=== PATIENT | female | born 1955 | race Caucasian/White ===

== ENCOUNTER 2020-06-13 23:51 | Inpatient (IN) | payer MEDICARE, BC ==
[~2020-06-13] VITALS: Ht 172.7 cm; Wt 50.8 kg
[2020-06-14] VITALS (7 sets, daily range): BP systolic 93–125; BP diastolic 47–71
--- NOTE | 2020-06-14 00:18 | NUR ---
GPS SLEEVE TURNER NOTE: PT ARRIVED ON THE UNIT 06/14/20 @ 0000, PT CAME FROM [facility] PRIOR TO THAT PT CAME FROM HOME. PT IS A 65 Y/O FEMALE PLACED ON A 5150 DUE TO DTS AND DTO, PER HOLD PT WAS SWINGING A KNIFE AT DAUGHTER AND MAKING SUICIDAL STATEMENTS. PT HAS MEDICAL HX OF HTN, HYPOTHYROIDISM, PSYCH HX OF ANXIETY AND DEPRESSION. UPON ASSESSMENT PT IS A/O X 3, PT IS COOPERATIVE, CALM, FLAT AFFECT. ABLE TO ANSWER QUESTIONS AND SIGNED PAPERWORK. PT DENIES SI/HI AT THIS TIME, DENIES AVH. PT DENIES PAIN, NO DISTRESS WAS NOTED. PT REFUSES BOTH FLU AND PNA VACCINE. PT ADVISED OF HOLD, PT RIGHTS HANDBOOK GIVEN TO THE PT, PT MADE AWARE OF THE UNIT. PT WILL BE UNDER THE CARE OF MEDICAL DR. NATION AND PSYCH CARE OF DR. THOMAS. ARMATURE VARNISHER DR. NATION WAS NOTIFIED OF THE PTS ADMISSION AND ASKED FOR THE MED RECON TO BE DONE WHEN ABLE TO. ALL NEEDS MET AT THIS TIME, WILL CONTINUE TO MONITOR Q15MIN FOR SAFETY AND BEHAVIOR.
[2020-06-14] MEDS ORDERED: MAG HYDROX/AL HYDROX/SIMETH 30 ML UDC PO PRN (00:30)
[2020-06-14] MEDS ORDERED: BLOOD SUGAR DIAGNOSTIC 1 EACH STRIP IN ONE (00:30)
[2020-06-14] MEDS ORDERED: ACETAMINOPHEN 325 MG TABLET PO PRN ×2 (00:30→09:00)
[2020-06-14] MEDS ORDERED: MAGNESIUM HYDROXIDE 30 ML UDC PO PRN (00:30)
[2020-06-14] MEDS ORDERED: LORAZEPAM 1 MG TABLET PO PRN (01:00)
[2020-06-14] MEDS ORDERED: levothyroxine PO (01:37)
[2020-06-14] MEDS ORDERED: folic acid PO (01:37)
[2020-06-14] MEDS ORDERED: oxybutynin PO (01:37)
[2020-06-14] MEDS ORDERED: BUSP5TAB3 PO (01:37)
[2020-06-14] MEDS ORDERED: MELA5TAB PO (01:37)
[2020-06-14] MEDS ORDERED: DOCUSATE SENNA PO (01:46)
[2020-06-14] MEDS ORDERED: HYDR-4354 PO (01:46)
[2020-06-14] MEDS ORDERED: tramadol PO (01:46)
[2020-06-14] MEDS ORDERED: lovenox SUBCUT (01:46)
[2020-06-14] MEDS ORDERED: MAGN400T8 PO (01:46)
[2020-06-14] MEDS ORDERED: LISI2.5T2 PO ×2 (04:03→08:19)
[2020-06-14] MEDS ORDERED: NITR0.4T48 SL (04:03)
[2020-06-14] MEDS ORDERED: METOPROLOL TARTRATE (04:03)
--- NOTE | 2020-06-14 04:21 | NUR ---
GPS RN NOTE: CONTACTED DR. NATION FOR MED RECON AND STATED "WILL DO" Addendum: 06/14/20 at 0433 by SAMMY PINTO RN at 0148
[2020-06-14] MEDS ORDERED: LYRICA (04:29)
[2020-06-14] MEDS ORDERED: PREG25CA PO (08:19)
[2020-06-14] MEDS ORDERED: IBUP-1953 PO (08:19)
[2020-06-14] MEDS ORDERED: OXYB10TA30 PO (08:19)
[2020-06-14] MEDS ORDERED: ONDA4TAB5 PO (08:19)
[2020-06-14] MEDS ORDERED: FOLI0.4T2 PO (08:19)
[2020-06-14] MEDS ORDERED: MONT10TA22 PO (08:19)
[2020-06-14] MEDS ORDERED: LEVO88TA5 PO (08:19)
[2020-06-14] MEDS ORDERED: METO25TA20 PO (08:19)
--- NOTE | 2020-06-14 08:50 | NUR ---
GPS/RN VERIFIED THE ALLERGY WITH PT. PER PT SHE DOES NOT HAVE ALLERGY TO NORCO OR TYLENOL.
[2020-06-14] MEDS ORDERED: NITROGLYCERIN 0.4 MG/TAB BOTTLE SL PRN (13:30)
[2020-06-14] MEDS ORDERED: LISINOPRIL (5MG) 5 MG TABLET PO PRN (13:30)
[2020-06-14] MEDS ORDERED: IBUPROFEN 400 MG TABLET PO PRN (13:30)
[2020-06-14] MEDS ORDERED: ONDANSETRON 4 MG TAB.RAPDIS PO PRN (13:30)
[2020-06-14 14:33] LABS: BASOPHILS # (AUTO) 0.1 /CMM (0.0-0.2); BASOPHILS % (AUTO) 1.3 % (0.0-2.0); EOSINOPHILS % (AUTO) 1.5 % (0.0-6.0); HEMATOCRIT 39 % (33-45); HEMOGLOBIN 12.8 g/dL (11.5-14.8); LYMPHOCYTES # (AUTO) 1.8 /CMM (0.8-4.8); LYMPHOCYTES % (AUTO) 27.6 % (20.0-44.0); MEAN CORPUSCULAR HGB CONC 33 g/dl (31.0-36.0); MEAN CORPUSCULAR VOLUME 83 fL (82-100); MONOCYTES # (AUTO) 0.5 /CMM (0.1-1.30); MONOCYTES % (AUTO) 7.5 % (2.0-12.0); NEUTROPHILS # (AUTO) 4.1 /CMM (1.8-8.9); NEUTROPHILS % (AUTO) 62.1 % (43.0-81.0); PLATELET COUNT (AUTO) 293 /CMM (150-450); RED BLOOD CELL COUNT(AUTO) 4.69 MIL/uL (4.0-5.2); WHITE BLOOD COUNT (AUTO) 6.7 K/uL (4.3-11.0)
[2020-06-14 14:45] LABS: ALBUMIN 3.1 g/dL (3.4-5.0); BILIRUBIN,TOTAL 0.4 mg/dL (0.2-1.0); CALCIUM, SERUM 8.7 mg/dL (8.5-10.1); CREATININE 0.8 mg/dL (0.6-1.3); MAGNESIUM 1.8 mg/dL (1.8-2.4); PHOSPHORUS 3.3 mg/dL (2.5-4.9); POTASSIUM 3.7 mmol/L (3.5-5.1); TOTAL PROTEIN, SERUM 7.2 g/dL (6.4-8.2)
[2020-06-14 14:56] LABS: THYROID STIMULATING HORMONE 0.061 uIU/mL (0.358-3.74)
[2020-06-14] MEDS: PREGABALIN 25 MG CAPSULE PO SCH (16:24)
[2020-06-14] MEDS: METOPROLOL TARTRATE 25 MG TABLET PO SCH (16:25)
[2020-06-14] MEDS: ENOXAPARIN SODIUM 40 MG/0.4 ML DISP.SYRIN SQ SCH (16:27)
[2020-06-14] MEDS ORDERED: busPIRone 5 MG TABLET PO SCH ×2 (17:00)
[2020-06-14] MEDS ORDERED: Medication Not On Formulary EA (Melatonin 5 MG) PO SCH (18:00)
--- NOTE | 2020-06-14 23:00 | NUR ---
GPS RN NOTE PATIENT SEEN BY DR. THOMAS WITH NEW ORDERS TO START DEPAKOTE 250 MG TID & RISPERDAL 0.5 MG BID. NOTED & CARRIED OUT. FAXED TO PHARMACY.
[2020-06-14] MEDS: DIVALPROEX SODIUM 250 MG TABLET.DR PO SCH (23:50)
[2020-06-14] MEDS: risperiDONE 1 MG TABLET PO SCH (23:51)
[2020-06-15 08:00] VITALS: BP 90/63
[2020-06-15 08:30] LABS: ALBUMIN 2.9 g/dL (3.4-5.0); BILIRUBIN,TOTAL 0.5 mg/dL (0.2-1.0); CREATININE 0.6 mg/dL (0.6-1.3); POTASSIUM 3.9 mmol/L (3.5-5.1); TOTAL PROTEIN, SERUM 6.9 g/dL (6.4-8.2)
[2020-06-15 08:32] LABS: CHOLESTEROL 133 mg/dL (<200); HDL CHOLESTEROL 61 mg/dL (40-60); LDL 59 mg/dL (0-99); TRIGLYCERIDES 65 mg/dL (30-150)
[2020-06-15] MEDS: OXYBUTYNIN CHLORIDE 5 MG TABLET PO SCH (08:37)
[2020-06-15] MEDS: PREGABALIN 25 MG CAPSULE PO SCH ×2 (08:39→17:51)
[2020-06-15] MEDS: MONTELUKAST SODIUM (10MG) 10 MG TABLET PO SCH (08:39)
[2020-06-15] MEDS: LEVOTHYROXINE SODIUM 88 MCG TABLET PO SCH (08:41)
[2020-06-15] MEDS: DIVALPROEX SODIUM 250 MG TABLET.DR PO SCH ×3 (08:41→17:51)
[2020-06-15] MEDS: FOLIC ACID 1 MG TABLET PO SCH (08:41)
[2020-06-15] MEDS: risperiDONE 1 MG TABLET PO SCH ×2 (08:41→17:52)
[2020-06-15] MEDS: METOPROLOL TARTRATE 25 MG TABLET PO SCH ×2 (09:00→17:54)
--- NOTE | 2020-06-15 10:38 | NUR ---
Family Contact: SW called the pts daughter, Dasia ([phone]), and informed her that the pt appears to be improving with the new medication regimen. SW stated that the pt appears to be speaking in clear and complete sentences and has an overall good awareness of the situation surrounding her admission. Pts daughter stated that the pt had tangential speech and thought processes upon admission. Pts daughter stated that the pt can return to her home at the time of discharge and that she will come and pick her up.
--- NOTE | 2020-06-15 11:53 | NUR ---
Initial Discharge Plan: Pt currently resides at her [place] home [place] at [address], [place] [address]; ([phone]). Per pt, she would like to be discharged back to her home. Pts daughter, Dasia ([phone]), stated that she will pick the pt up. SW will work with the pt and the MD regarding appropriate discharge planning. SW will form a safe and proper discharge.
[2020-06-15 16:00] VITALS: BP 111/66
[2020-06-15] MEDS: ENOXAPARIN SODIUM 40 MG/0.4 ML DISP.SYRIN SQ SCH (16:10)
[2020-06-15 20:26] VITALS: BP 101/62
[2020-06-15] MEDS: TEMAZEPAM 7.5 MG CAPSULE PO PRN (21:57)
--- NOTE | 2020-06-15 21:58 | NUR ---
GPS RN NOTE: INSOMNIA PT REQUESTED SLEEPING PILL, VSS, ADMIN RESTORIL 15MG PRN ORDERED @ 2157, WILL REASSESS AND CONTINUE TO MONITOR Q15MIN FRO SAFETY AND BEHAVIOR. PT MADE AWARE OF FALL RISK, BED ALARM ON, BED IN LOCKED AND LOWEST POSITION, WALKER ACCESSIBLE TO PT.
--- NOTE | 2020-06-15 22:08 | NUR ---
GPS RN NOTE: SPOKE WITH THE PTS DAUGHTER @ 2200, THE PTS DAUGHTER WAS TEARFUL AND STATED SHE RECEIVED A PHONE CALL FROM THE PT STATING THE PT SAID SHE WAS GOING TO HIRE AN CORPORATE STAFF ACCOUNTANT TO [place]GÉLICA HER AND ONCE SHE IS OUT OF HERE SHE IS NOT GOING TO TAKE THE MEDICATION AND DO WHAT SHE WANTS, DAUGHTER ALSO ASKED TO SPEAK WITH THE PSYCHIATRIST WHEN POSSIBLE, WROTE DOWN A MESSAGE FOR DR. THOMAS, AT THIS TIME PT IS STABLE, RESTING IN BED, WILL PASS IT ON AND CONTINUE TO ASSESS Q15MIN FOR SAFETY AND BEHAVIOR.
[2020-06-16 03:05] LABS: BILIRUBIN,URINE NEGATIVE (NEGATIVE); BLOOD, URINE NEGATIVE Ery/uL (NEGATIVE); COLOR,URINE YELLOW (YELLOW); LEUKOCYTE ESTERASE ,URINE TRACE (NEGATIVE); NITRITE, URINE NEGATIVE (NEGATIVE); PROTEIN,URINE NEGATIVE (NEGATIVE); UGLUCOSE NEGATIVE (NEGATIVE); UROBILINOGEN,URINE 0.2 EU/dL (0.2)
[2020-06-16 03:28] LABS: BACTERIA,URINE None seen /HPF (None Seen); RBC,URINE 0-2 /HPF (0-2); SQUAMOUS EPITHELIAL CELL,UR Moderate /HPF (None Seen); URINE AMORPHOUS URATE Few /HPF (None Seen); YEAST,URINE None Seen /HPF (None Seen)
--- NOTE | 2020-06-16 05:32 | NUR ---
GPS RN NOTE: PAGED RN ACUTE DIALYSIS DR. NATION REGARDING PTS URINALYSIS, PT IS NOT COMPLAINING OF ANY DISCOMFORT OR PAIN WHEN URINATING, WILL WAIT FOR REPLY BACK AND CONTINUE TO MONITOR PT Q15MIN FOR SAFETY AND BEHAVIOR.
--- NOTE | 2020-06-16 05:55 | NUR ---
GPS RN NOTE: RECEIVED AN ORDER FROM DR. NATION FOR KEFLEX 500 PO BID FOR 7 DAYS, WILL PUT IN THE ORDERS, NOTIFY PT AND UPCOMING SHIFT.
[2020-06-16] MEDS: LEVOTHYROXINE SODIUM 88 MCG TABLET PO SCH (06:43)
[2020-06-16 08:00] VITALS: BP 107/68
[2020-06-16] MEDS: OXYBUTYNIN CHLORIDE 5 MG TABLET PO SCH (08:43)
[2020-06-16] MEDS: risperiDONE 1 MG TABLET PO SCH ×2 (08:43→17:08)
[2020-06-16] MEDS: METOPROLOL TARTRATE 25 MG TABLET PO SCH ×2 (08:44→17:00)
[2020-06-16] MEDS: MONTELUKAST SODIUM (10MG) 10 MG TABLET PO SCH (08:44)
[2020-06-16] MEDS: DIVALPROEX SODIUM 250 MG TABLET.DR PO SCH ×3 (08:44→17:08)
[2020-06-16] MEDS: FOLIC ACID 1 MG TABLET PO SCH (08:44)
[2020-06-16] MEDS: CEPHALEXIN MONOHYDRATE 250 MG CAPSULE PO SCH ×2 (08:44→17:08)
[2020-06-16] MEDS: PREGABALIN 25 MG CAPSULE PO SCH ×2 (08:44→17:08)
--- NOTE | 2020-06-16 09:00 | NUR ---
RN NOTE=- PT ALERT ORIENTED TO PERSON PLACE DENIES SI HI AH VH THIS MORNING, INTERACTIVE AND MED COMPLIANT. NO BEHAVIORAL ISSUES .
--- NOTE | 2020-06-16 09:33 | NUR ---
WOUND CARE CONSULT: SPOKE WITH RN WHO STATES NO NEED FOR WOUND CONSULT. CURRENT LUZ MARIA SCORE IS 18. WILL SEE PRN.
[2020-06-16] MEDS: ENOXAPARIN SODIUM 40 MG/0.4 ML DISP.SYRIN SQ SCH (15:52)
[2020-06-16 16:00] VITALS: BP 108/72
[2020-06-16 20:37] VITALS: BP 101/62
[2020-06-16] MEDS: TEMAZEPAM 7.5 MG CAPSULE PO PRN (22:58)
--- NOTE | 2020-06-16 22:59 | NUR ---
GPS RN NOTE: INSOMNIA PT REQUESTED SLEEPING PILL, VSS, ADMIN RESTORIL 15MG PRN ORDERED @ 2258, WILL REASSESS AND CONTINUE TO MONITOR Q15MIN FRO SAFETY AND BEHAVIOR. PT MADE AWARE OF FALL RISK, BED ALARM ON, BED IN LOCKED AND LOWEST POSITION, WALKER ACCESSIBLE TO PT.
[2020-06-17] MEDS: LEVOTHYROXINE SODIUM 88 MCG TABLET PO SCH (06:32)
[2020-06-17 08:00] VITALS: BP 120/71
[2020-06-17] MEDS: DIVALPROEX SODIUM 250 MG TABLET.DR PO SCH ×3 (08:47→16:27)
[2020-06-17] MEDS: CEPHALEXIN MONOHYDRATE 250 MG CAPSULE PO SCH ×2 (08:47→16:28)
[2020-06-17] MEDS: MONTELUKAST SODIUM (10MG) 10 MG TABLET PO SCH (08:47)
[2020-06-17] MEDS: PREGABALIN 25 MG CAPSULE PO SCH ×2 (08:48→16:27)
[2020-06-17] MEDS: METOPROLOL TARTRATE 25 MG TABLET PO SCH ×2 (08:48→16:28)
[2020-06-17] MEDS: OXYBUTYNIN CHLORIDE 5 MG TABLET PO SCH (08:48)
[2020-06-17] MEDS: FOLIC ACID 1 MG TABLET PO SCH (08:48)
[2020-06-17] MEDS: risperiDONE 1 MG TABLET PO SCH ×2 (08:48→16:29)
--- NOTE | 2020-06-17 09:00 | NUR ---
RN NOTE- VISIBLE ON UNIT, MORE INTERACTIVE, PT ALERT ORIENTED TO PERSON PLACE DENIES SI HI AH VH THIS MORNING, MED COMPLIANT. NO BEHAVIORAL ISSUES .
[2020-06-17 16:00] VITALS: BP 123/75
[2020-06-17] MEDS: ENOXAPARIN SODIUM 40 MG/0.4 ML DISP.SYRIN SQ SCH (16:04)
[2020-06-17 21:08] VITALS: BP 157/76
[2020-06-17] MEDS: TEMAZEPAM 7.5 MG CAPSULE PO PRN (22:44)
--- NOTE | 2020-06-17 22:45 | NUR ---
GPS RN NOTE: INSOMNIA PT C/O OF INSOMNIA REQUESTED SLEEPING PILL, ADMIN RESTORIL 15MG @ 2244, VSS, BED IN LOCKED AND LOWEST POSITION, PT NOTIFIED ABOUT FALL RISK DUE TO THIS MEDICATION, BED ALARM ON AND WALKER ACCESSIBLE TO PT. WILL CONTINUE TO MONITOR Q15MIN FOR SAFETY AND BEHAVIOR.
[2020-06-18] MEDS: LEVOTHYROXINE SODIUM 88 MCG TABLET PO SCH (06:32)
[2020-06-18 08:00] VITALS: BP 128/75
[2020-06-18] MEDS: CEPHALEXIN MONOHYDRATE 250 MG CAPSULE PO SCH ×2 (08:04→16:03)
[2020-06-18] MEDS: FOLIC ACID 1 MG TABLET PO SCH (08:04)
[2020-06-18] MEDS: MONTELUKAST SODIUM (10MG) 10 MG TABLET PO SCH (08:04)
[2020-06-18] MEDS: OXYBUTYNIN CHLORIDE 5 MG TABLET PO SCH (08:05)
[2020-06-18] MEDS: PREGABALIN 25 MG CAPSULE PO SCH ×2 (08:05→16:03)
[2020-06-18] MEDS: DIVALPROEX SODIUM 250 MG TABLET.DR PO SCH ×3 (08:05→16:21)
[2020-06-18] MEDS: risperiDONE 1 MG TABLET PO SCH ×2 (08:05→16:03)
[2020-06-18] MEDS: METOPROLOL TARTRATE 25 MG TABLET PO SCH ×2 (08:06→16:04)
--- NOTE | 2020-06-18 12:29 | NUR ---
Family Contact: SW called the pts daughter, Dasia ([phone]), and left a voicemail stating that she would like to discuss the pts current treatment.
--- NOTE | 2020-06-18 12:42 | NUR ---
Family Contact: Pts daughter, Dasia ([phone]), called the SW back and the SW provided her with an update of the pts progress and it was discussed that she would be discharged sometime next week. SW stated that she would update the pts daughter and work on attaining a psychiatrist for follow up.
[2020-06-18] MEDS: ENOXAPARIN SODIUM 40 MG/0.4 ML DISP.SYRIN SQ SCH (15:35)
[2020-06-18 16:00] VITALS: BP 100/70
[2020-06-18 20:37] VITALS: BP 113/76
[2020-06-18] MEDS: TEMAZEPAM 7.5 MG CAPSULE PO PRN (23:02)
--- NOTE | 2020-06-18 23:02 | NUR ---
NURSE NOTES: PATIENT COMPLAINED OF HAVING INSOMNIA. REQUESTED FOR HER SLEEPING MEDICATION. RESTORIL 15 MG GIVEN ORALLY. WILL MONITOR PATIENT'S SLEEPING PATTERN.
[2020-06-19 09:14] VITALS: BP 114/76
[2020-06-19] MEDS: CEPHALEXIN MONOHYDRATE 250 MG CAPSULE PO SCH ×2 (09:30→16:25)
[2020-06-19] MEDS: FOLIC ACID 1 MG TABLET PO SCH (09:30)
[2020-06-19] MEDS: DIVALPROEX SODIUM 250 MG TABLET.DR PO SCH ×3 (09:31→16:24)
[2020-06-19] MEDS: MONTELUKAST SODIUM (10MG) 10 MG TABLET PO SCH (09:31)
[2020-06-19] MEDS: PREGABALIN 25 MG CAPSULE PO SCH ×2 (09:31→16:25)
[2020-06-19] MEDS: OXYBUTYNIN CHLORIDE 5 MG TABLET PO SCH (09:31)
[2020-06-19] MEDS: LEVOTHYROXINE SODIUM 88 MCG TABLET PO SCH (09:31)
[2020-06-19] MEDS: risperiDONE 1 MG TABLET PO SCH ×2 (09:31→16:25)
[2020-06-19] MEDS: METOPROLOL TARTRATE 25 MG TABLET PO SCH ×2 (09:32→16:26)
[2020-06-19 16:17] VITALS: BP 115/73
--- NOTE | 2020-06-19 16:19 | NUR ---
Family Contact: SW called the pts daughter, Dasia ([phone]), and informed her that the pt has an appointment with her boiler house mechanic on 07/01/20 at 3pm and that she will refer the pt to a psychiatrist once she evaluates her.
[2020-06-19] MEDS: ENOXAPARIN SODIUM 40 MG/0.4 ML DISP.SYRIN SQ SCH (16:28)
[2020-06-19 19:50] VITALS: BP 100/61
[2020-06-19 20:08] VITALS: BP 100/61
[2020-06-19 22:50] VITALS: BP 109/65
[2020-06-19] MEDS: TEMAZEPAM 7.5 MG CAPSULE PO PRN (22:52)
--- NOTE | 2020-06-19 22:52 | NUR ---
GPS RN NOTE: INSOMNIA PATIENT VERBALIZED THAT SHE IS UNABLE TO SLEEP, REQUESTED TO GET SLEEPING MEDICINE. VSS 109/65, 77, 18, 97.5, 97% AT RA, PRN RESTORIL 15 MG PO GIVEN. WILL CONTINUE TO MONITOR.
[2020-06-20 08:00] VITALS: BP 120/77
[2020-06-20] MEDS: LEVOTHYROXINE SODIUM 88 MCG TABLET PO SCH (08:57)
[2020-06-20] MEDS: DIVALPROEX SODIUM 250 MG TABLET.DR PO SCH ×3 (09:11→17:34)
[2020-06-20] MEDS: CEPHALEXIN MONOHYDRATE 250 MG CAPSULE PO SCH ×2 (09:11→17:34)
[2020-06-20] MEDS: OXYBUTYNIN CHLORIDE 5 MG TABLET PO SCH (09:12)
[2020-06-20] MEDS: FOLIC ACID 1 MG TABLET PO SCH (09:12)
[2020-06-20] MEDS: risperiDONE 1 MG TABLET PO SCH ×2 (09:12→17:34)
[2020-06-20] MEDS: MONTELUKAST SODIUM (10MG) 10 MG TABLET PO SCH (09:12)
[2020-06-20] MEDS: PREGABALIN 25 MG CAPSULE PO SCH ×2 (09:12→17:33)
[2020-06-20] MEDS: METOPROLOL TARTRATE 25 MG TABLET PO SCH ×2 (09:14→17:34)
[2020-06-20] MEDS: ENOXAPARIN SODIUM 40 MG/0.4 ML DISP.SYRIN SQ SCH (15:54)
[2020-06-20 16:20] VITALS: BP 127/90
[2020-06-20 19:55] VITALS: BP 108/66
[2020-06-20 21:05] VITALS: BP 108/66
[2020-06-20] MEDS: TEMAZEPAM 7.5 MG CAPSULE PO PRN (22:48)
--- NOTE | 2020-06-20 22:48 | NUR ---
GPS RN NOTE: INSOMNIA PATIENT VERBALIZED THAT SHE IS UNABLE TO SLEEP, REQUESTED TO GET SLEEPING MEDICINE. VSS. PRN RESTORIL 15 MG PO GIVEN. WILL CONTINUE TO MONITOR.
[2020-06-21 08:00] VITALS: BP 133/83
[2020-06-21] MEDS: CEPHALEXIN MONOHYDRATE 250 MG CAPSULE PO SCH ×2 (09:08→16:45)
[2020-06-21] MEDS: risperiDONE 1 MG TABLET PO SCH ×2 (09:09→16:45)
[2020-06-21] MEDS: PREGABALIN 25 MG CAPSULE PO SCH ×2 (09:09→16:45)
[2020-06-21] MEDS: DIVALPROEX SODIUM 250 MG TABLET.DR PO SCH ×3 (09:09→16:44)
[2020-06-21] MEDS: OXYBUTYNIN CHLORIDE 5 MG TABLET PO SCH (09:09)
[2020-06-21] MEDS: FOLIC ACID 1 MG TABLET PO SCH (09:10)
[2020-06-21] MEDS: MONTELUKAST SODIUM (10MG) 10 MG TABLET PO SCH (09:13)
[2020-06-21] MEDS: METOPROLOL TARTRATE 25 MG TABLET PO SCH ×2 (09:14→16:46)
[2020-06-21] MEDS: ENOXAPARIN SODIUM 40 MG/0.4 ML DISP.SYRIN SQ SCH (15:50)
[2020-06-21 16:00] VITALS: BP 119/71
[2020-06-21 20:00] VITALS: BP 111/59
[2020-06-21] MEDS: TEMAZEPAM 7.5 MG CAPSULE PO PRN (22:00)
--- NOTE | 2020-06-21 22:00 | NUR ---
GPS-RN NOTE: INSOMNIA PATIENT C/O INABILITY TO SLEEP. ADMINISTERED RESTORIL 15MG PO ORDERED PER PATIENT'S REQUEST. WILL CONTINUE TO MONITOR PATIENT'S SAFETY.
[2020-06-22] MEDS: LEVOTHYROXINE SODIUM 88 MCG TABLET PO SCH (07:30)
[2020-06-22 08:00] VITALS: BP 121/75
[2020-06-22] MEDS: CEPHALEXIN MONOHYDRATE 250 MG CAPSULE PO SCH ×2 (09:02→17:53)
[2020-06-22] MEDS: DIVALPROEX SODIUM 250 MG TABLET.DR PO SCH ×3 (09:02→17:53)
[2020-06-22] MEDS: PREGABALIN 25 MG CAPSULE PO SCH ×2 (09:02→17:53)
[2020-06-22] MEDS: OXYBUTYNIN CHLORIDE 5 MG TABLET PO SCH (09:03)
[2020-06-22] MEDS: MONTELUKAST SODIUM (10MG) 10 MG TABLET PO SCH (09:04)
[2020-06-22] MEDS: risperiDONE 1 MG TABLET PO SCH ×2 (09:04→17:53)
[2020-06-22] MEDS: FOLIC ACID 1 MG TABLET PO SCH (09:06)
[2020-06-22] MEDS: METOPROLOL TARTRATE 25 MG TABLET PO SCH ×2 (09:06→17:54)
--- NOTE | 2020-06-22 13:14 | NUR ---
Family Contact: Patient's daughter Dasia ([phone]) called this greeting card writer to discuss when pt's discharge day is. This greeting card writer called Dasia and left a detailed voicemail.
[2020-06-22 16:00] VITALS: BP 121/79
[2020-06-22] MEDS: ENOXAPARIN SODIUM 40 MG/0.4 ML DISP.SYRIN SQ SCH (16:07)
[2020-06-22 20:37] VITALS: BP 103/56
[2020-06-23] MEDS: TEMAZEPAM 7.5 MG CAPSULE PO PRN ×2 (00:19→22:21)
--- NOTE | 2020-06-23 00:20 | NUR ---
Patient c/o difficulty falling asleep,requested and given Restoril 15 mg PO .
[2020-06-23] MEDS: LEVOTHYROXINE SODIUM 88 MCG TABLET PO SCH (07:30)
[2020-06-23 08:00] VITALS: BP 129/86
[2020-06-23] MEDS: OXYBUTYNIN CHLORIDE 5 MG TABLET PO SCH (09:00)
[2020-06-23] MEDS: CEPHALEXIN MONOHYDRATE 250 MG CAPSULE PO SCH (09:03)
[2020-06-23] MEDS: DIVALPROEX SODIUM 250 MG TABLET.DR PO SCH ×3 (09:03→17:35)
[2020-06-23] MEDS: FOLIC ACID 1 MG TABLET PO SCH (09:03)
[2020-06-23] MEDS: METOPROLOL TARTRATE 25 MG TABLET PO SCH ×2 (09:03→17:35)
[2020-06-23] MEDS: MONTELUKAST SODIUM (10MG) 10 MG TABLET PO SCH (09:12)
[2020-06-23] MEDS: risperiDONE 1 MG TABLET PO SCH ×2 (09:12→17:36)
[2020-06-23] MEDS: PREGABALIN 25 MG CAPSULE PO SCH ×2 (09:12→17:35)
[2020-06-23] MEDS: ENOXAPARIN SODIUM 40 MG/0.4 ML DISP.SYRIN SQ SCH (15:30)
[2020-06-23 16:00] VITALS: BP 120/72
--- NOTE | 2020-06-23 16:06 | NUR ---
SW Coordination of Care: TAWANDA Chen located at [address] [place] [address] A, [place] [address]; ([phone]); faxed: . This SW faxed patient's clinicals.
[2020-06-23 21:24] VITALS: BP 97/53
[2020-06-23 22:17] VITALS: BP 115/64
--- NOTE | 2020-06-23 22:21 | NUR ---
PS-RN NOTES: INSOMNIA PATIENT C/O INABILITY TO SLEEP. ADMINISTERED RESTORIL 15MG PO ORDERED. WILL CONTINUE TO MONITOR FOR PT'S SAFETY.
[2020-06-24 08:00] VITALS: BP 114/79
--- NOTE | 2020-06-24 08:19 | NUR ---
Family Contact: This SW contacted patient's daughter Dasia ([phone]) twice and left a voicemail in regards to pt's discharge on 06/25 and to set pick remover time.
[2020-06-24] MEDS: DIVALPROEX SODIUM 250 MG TABLET.DR PO SCH ×3 (08:21→16:32)
[2020-06-24] MEDS: OXYBUTYNIN CHLORIDE 5 MG TABLET PO SCH (08:21)
[2020-06-24] MEDS: FOLIC ACID 1 MG TABLET PO SCH (08:21)
[2020-06-24] MEDS: MONTELUKAST SODIUM (10MG) 10 MG TABLET PO SCH (08:21)
[2020-06-24] MEDS: risperiDONE 1 MG TABLET PO SCH ×2 (08:21→16:32)
[2020-06-24] MEDS: PREGABALIN 25 MG CAPSULE PO SCH ×2 (08:21→16:32)
[2020-06-24] MEDS: LEVOTHYROXINE SODIUM 88 MCG TABLET PO SCH (08:22)
[2020-06-24] MEDS: METOPROLOL TARTRATE 25 MG TABLET PO SCH ×2 (08:22→16:32)
--- NOTE | 2020-06-24 12:31 | NUR ---
Family Contact: This press writer received a phone call from daughter Dasia ([phone]) who stated her [employer] ([phone]) will greens picker pt at 11AM on 06/25/20.
--- NOTE | 2020-06-24 13:11 | NUR ---
[facility] Individual Therapy: curtain worker met with patient for brief counseling and assessed for patient's labile mood. Patient appeared calm and was cooperative. Patient was able to share some family history. She stated she has a strong relationship with her daughter and is appreciative of her. This residential mortgage underwriter actively listened.
[2020-06-24 16:00] VITALS: BP 128/84
[2020-06-24] MEDS: ENOXAPARIN SODIUM 40 MG/0.4 ML DISP.SYRIN SQ SCH (16:25)
--- NOTE | 2020-06-24 18:31 | NUR ---
RN-CO: Per Dr Ponce , pt is for [facility].
[2020-06-24 19:55] VITALS: BP 101/55
[2020-06-24] MEDS: TEMAZEPAM 7.5 MG CAPSULE PO PRN (23:16)
--- NOTE | 2020-06-25 07:47 | NUR ---
Dr. Ponce gave an order to D/C hold and D/c home and to follow up with psych and medical doctors. Pt. without distress, denies suicidal and homicidal. Discharge papers ready and belongings ready. Addendum: 06/25/20 at 1100 [address]EVE [address] RN [address] Ponce provided a prescriptions for the patient.
[2020-06-25 08:00] VITALS: BP_SYST 132; BP_SYST 142; BP_DIAS 75; BP_DIAS 76
[2020-06-25] MEDS: FOLIC ACID 1 MG TABLET PO SCH (08:22)
[2020-06-25] MEDS: OXYBUTYNIN CHLORIDE 5 MG TABLET PO SCH (08:22)
[2020-06-25] MEDS: LEVOTHYROXINE SODIUM 88 MCG TABLET PO SCH (08:22)
--- NOTE | 2020-06-25 08:22 | NUR ---
SW Discharge Note: Patient lives at [address] [place] [address], [place] [address]; ([phone]). Patients daughter, Dasia ([phone]), stated her [employer] ([phone]) will pick up man patient at 11AM. Patients daughter Dasia is aware and agreeable with discharge. Patient is alert and oriented x3. Patient denies any suicidal or homicidal ideation. Patient is aware and agreeable with discharge plans. Patient will follow up with TAWANDA Chen located at [address] [place] [address] A, [place] [address]; ([phone]); . Pt has an appointment on 07/01/20 at 3pm. TAWANDA Chen will refer patient to a psychiatrist and CERTIFIED SURGICAL TECH/FIRST ASSISTANT will and will prescribe/manage psychotropic medications. Patient presents with euthymic mood and congruent affect.
[2020-06-25 08:24] VITALS: BP 132/75
[2020-06-25] MEDS: MONTELUKAST SODIUM (10MG) 10 MG TABLET PO SCH (08:24)
[2020-06-25] MEDS: DIVALPROEX SODIUM 250 MG TABLET.DR PO SCH (08:24)
[2020-06-25] MEDS: METOPROLOL TARTRATE 25 MG TABLET PO SCH (08:24)
[2020-06-25] MEDS: PREGABALIN 25 MG CAPSULE PO SCH (08:25)
[2020-06-25] MEDS: risperiDONE 1 MG TABLET PO SCH (08:26)
--- NOTE | 2020-06-25 10:58 | NUR ---
Dr. Munguia made aware of the discharge and provided a prescriptions. Pt. signed the discharge papers and pictures taken for the skin issues.
--- NOTE | 2020-06-25 11:35 | NUR ---
Pt. left the unit with belongings and wheeled by staff to the lobby. Pt. being picked up by son-in law [employer]. Pt. instructed on meds to continue at home and verbalizes understanding and instructed to make a follow up on psych and medical doctors and agreed. Pt. advised that she has appointment on 07/01/20 @3:00 pm with Jaylene Chen and agreed. Left without distress and on stable condition. V/S taken: BP 122/81, AK 85, RR 18, temp 97.7 and oxygen sat 98%
== END 2020-06-25 11:35 | disposition home or self-care (01) | DRG 885 ==
LOC: GPS 23:51
PROVIDERS: ADMIT Psychiatry & Neurology Psychiatry; ATTEND Family Medicine
DX: F25.9 Schizoaffective disorder, unspecified (principal); E43 Unspecified severe protein-calorie malnutrition; R45.851 Suicidal ideations; I42.8 Other cardiomyopathies; N39.0 Urinary tract infection, site not specified; Z68.1 Body mass index [BMI] 19.9 or less, adult; E03.9 Hypothyroidism, unspecified; G89.4 Chronic pain syndrome; I10 Essential (primary) hypertension; Z86.711 Personal history of pulmonary embolism; F29 Unspecified psychosis not due to a substance or known physiological condition; F41.9 Anxiety disorder, unspecified; F32.9 Major depressive disorder, single episode, unspecified; F10.10 Alcohol abuse, uncomplicated; I48.0 Paroxysmal atrial fibrillation; Z98.890 Other specified postprocedural states; F17.200 Nicotine dependence, unspecified, uncomplicated; F12.90 Cannabis use, unspecified, uncomplicated; Z95.828 Presence of other vascular implants and grafts; Z91.018 Allergy to other foods; Z88.1 Allergy status to other antibiotic agents; Z88.2 Allergy status to sulfonamides; Z91.048 Other nonmedicinal substance allergy status; Z87.81 Personal history of (healed) traumatic fracture; B96.89 Other specified bacterial agents as the cause of diseases classified elsewhere; F11.10 Opioid abuse, uncomplicated; K59.03 Drug induced constipation; Z82.3 Family history of stroke; Z91.81 History of falling; J44.9 Chronic obstructive pulmonary disease, unspecified
CPT/HCPCS: 36415; 80053-TC; 80061-TC; 81001; 82962-TC; 83735-TC; 84100-TC; 84439-TC; 84443-TC; 85025-TC; 87081-TC; 87086-TC; 97116-TC; 97530-TC; J1650